=== PATIENT | male | born 1970 | race Two or more races ===

== ENCOUNTER 2016-05-12 18:00 | Emergency (ER) | payer MEDICAID, OTHER ==
[2016-05-12] MEDS ORDERED: METHOCARBAMOL 750 MG TABLET ONE (18:56)
[2016-05-12] MEDS ORDERED: KETOROLAC TROMETHAMINE 60 MG/2 ML VIAL ONE (18:56)
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
== END 2016-05-12 20:31 | disposition home or self-care (01) ==
LOC: ED 18:00
DX: S39.012A Strain of muscle, fascia and tendon of lower back, initial encounter (principal); V49.9XXA Car occupant (driver) (passenger) injured in unspecified traffic accident, initial encounter; Y92.411 Interstate highway as the place of occurrence of the external cause; Z79.899 Other long term (current) drug therapy
CPT/HCPCS: 72100; 99283 ×2; 96372; A9270; J1885